=== PATIENT | male | born 1950 | race Two or more races ===

== ENCOUNTER 2020-06-07 08:15 | Inpatient (IN) | payer OTHER ==
[~2020-06-07] VITALS: Ht 165.1 cm; Wt 65.0 kg
[2020-06-14] MEDS ORDERED: TAMSULOSIN HCL0.4 MG (07:58)
[2020-06-17] MEDS ORDERED: DOCUSATE CALCI240 MG PO (07:43)
[2020-06-17] MEDS ORDERED: ULTRAM50 MG PO (07:43)
[2020-06-17] MEDS ORDERED: KEFLEX500 MG PO (07:43)
[2020-06-17] MEDS ORDERED: VASOTEC10 MG PO (08:03)
== END 2020-06-17 09:49 | disposition home or self-care (01) | DRG 708 ==
LOC: O/R 06-14 06:08 → SURH 06-14 06:08
PROVIDERS: ADMIT Surgery; ATTEND Surgery
PROC: 07TC0ZZ Resection of Pelvis Lymphatic, Open Approach (ICD-10-PCS; 2020-06-14)
PROC: 0VT Male Reproductive System, Resection (ICD-10-PCS; 2020-06-14)
PROC: 0VTQ0ZZ Resection of Bilateral Vas Deferens, Open Approach (ICD-10-PCS; 2020-06-14)
PROC: 0VT00ZZ Resection of Prostate, Open Approach (ICD-10-PCS; principal; 2020-06-14 07:00)
DX: C61 Malignant neoplasm of prostate (principal); N50.89 Other specified disorders of the male genital organs; N49.0 Inflammatory disorders of seminal vesicle